=== PATIENT | female | born 1995 | race Caucasian/White ===

== ENCOUNTER → 2017-07-27 | Outpatient (CLI) | payer OTHER ==
[~2017-07-27] MED LIST: GADOBUTROL 10 MMOL/10 ML PFS ONE; [UNRECOGNIZED DRUG - REMARK]
== END ==
LOC: CFH 12:00
PROVIDERS: ATTEND Family Medicine
DX: S09.8XXA Other specified injuries of head, initial encounter (principal); X58.XXXA Exposure to other specified factors, initial encounter; Y93.89 Activity, other specified; Y92.89 Other specified places as the place of occurrence of the external cause; Y99.8 Other external cause status
CPT/HCPCS: 70553; 82565; A9585

== ENCOUNTER 2018-10-14 20:04 | Emergency (ER) | payer OTHER ==
[~2018-10-14] VITALS: Ht 177.8 cm; Wt 117.0 kg
[~2018-10-14 20:04] MED LIST changes: -GADOBUTROL 10 MMOL/10 ML PFS ONE
[2018-10-14 20:35] LABS: BASOPHILS # (AUTO) 0.03 x10^3/uL (0-0.1); BASOPHILS % (AUTO) 0 % (0-1); EOSINOPHILS # (AUTO) 0.11 x10^3/uL (0-0.4); EOSINOPHILS % (AUTO) 1 % (1-7); LYMPHOCYTES # (AUTO) 2.49 x10^3/uL (1-3.4); LYMPHOCYTES % (AUTO) 23 % (22-44); MD NO; MEAN CORPUSCULAR HEMOGLOBIN 29.7 pg (27.0-34.8); MEAN CORPUSCULAR HGB CONC 34.6 g/dL (32.4-35.8); MEAN CORPUSCULAR VOLUME 85.8 fL (80-100); MONOCYTES # (AUTO) 0.48 x10^3/uL (0.2-0.8); MONOCYTES % (AUTO) 4 % (2-9); NEUTROPHILS # (AUTO) 7.96 x10^3/uL (1.8-6.8); NEUTROPHILS % (AUTO) 72 % (42-75); PLATELET COUNT 373 x10^3/uL (130-400); RED BLOOD COUNT 4.64 x10^6/uL (3.82-5.3); RED CELL DISTRIBUTION WIDTH 12.4 % (9.6-15.2)
[2018-10-14 20:39] LABS: CULTURE INDICATED? NO; MICROSCOPIC AUTO
[2018-10-14 20:44] LABS: ALANINE AMINOTRANSFERASE 61 U/L (12-78); ALBUMIN 3.7 g/dL (3.4-5.0); ANION GAP 9 mmol/L (5-15); CALCIUM 9.1 mg/dL (8.5-10.1); CHLORIDE 107 mmol/L (98-107); CREATININE 0.68 mg/dL (0.55-1.02)
[2018-10-14 20:48] LABS: ALKALINE PHOSPHATASE 56 U/L (45-117); BILIRUBIN,TOTAL 0.4 mg/dL (0.2-1.0); TOTAL PROTEIN 7.7 g/dL (6.4-8.2)
[2018-10-14 22:27] VITALS: BP 139/89
== END 2018-10-14 22:29 | disposition home or self-care (01) ==
LOC: ED 22:20
DX: R10.84 Generalized abdominal pain (principal); I10 Essential (primary) hypertension; R19.7 Diarrhea, unspecified; R50.9 Fever, unspecified
CPT/HCPCS: 36415; 74021; 80053; 81001; 83690; 84703; 85025; 93005; 99284

== ENCOUNTER 2021-04-19 19:22 | Emergency (ER) | payer OTHER ==
[~2021-04-19] VITALS: Ht 177.8 cm; Wt 118.0 kg
[2021-04-19] MEDS ORDERED: LIDOCAINE 1%, 10ML INFIL ONE (20:30)
[2021-04-19] MEDS ORDERED: LIDOCAINE-MPF 1%, 5ML ONE (20:37)
[2021-04-19] MEDS ORDERED: NEOSPORIN OINT. PKT 1 PACKET ONE (21:02)
[2021-04-19 21:20] VITALS: BP 128/86
== END 2021-04-19 21:22 | disposition home or self-care (01) ==
LOC: ED 19:52
DX: S61.432A Puncture wound without foreign body of left hand, initial encounter (principal); I10 Essential (primary) hypertension; X58.XXXA Exposure to other specified factors, initial encounter; Y93.89 Activity, other specified; Y92.009 Unspecified place in unspecified non-institutional (private) residence as the place of occurrence of the external cause; Y99.8 Other external cause status
CPT/HCPCS: 99283